=== PATIENT | male | born 1930 | race Caucasian/White ===

== ENCOUNTER 2017-01-04 09:53 | Emergency (ER) | payer OTHER, BC ==
[2017-01-04] MEDS ORDERED: Diltiazem 25 MG/5 ML SDV IVPUSH ONE (11:12)
[2017-01-04 13:01] VITALS: BP 140/73
--- NOTE | 2017-01-04 17:18 | ER ---
HISTORY OF PRESENT ILLNESS: An 86-year-old male here, who comes in by a private car with his son. The patient had an episode of dizziness and feeling a little lightheaded earlier this morning. He states his symptoms have resolved now. The patient tells me he has felt a little dizzy on and off for the last couple of months since being started on metoprolol which he takes 50 mg b.i.d. The patient denies any chest pain. He has not had any shortness of breath. He states that he feels good. He has not been nauseated. He has been active and in fact, this morning he was out chopping ice for a while and this went well. PAST MEDICAL HISTORY: Includes atrial flutter. OBJECTIVE: GENERAL APPEARANCE: The patient is awake and alert. No obvious distress. VITAL SIGNS: Reviewed. Blood pressure 171/92 initially. He is afebrile. PHYSICAL EXAM: Oral mucous membranes are moist. NECK: Supple. LUNGS: Clear. CARDIAC: Heart sounds distinct with a regular rhythm. ABDOMEN: Soft and nontender. SKIN: Warm and dry. INITIAL WORKUP: EKG was obtained showing atrial flutter. This is chronic for this patient. LABS: Done today include, a CBC which is unremarkable. Comprehensive metabolic panel is also normal. Troponins are normal as well. DIAGNOSIS: Atrial flutter, currently asymptomatic. TREATMENT PLAN: Cardizem 20 mg was given IV. This did drop the patient's blood pressure down. The lowest reading was 89/54, but it started to respond fairly quickly and soon was back to a reading of 107/59. The atrial flutter rhythm is persistent at this time, so I called the [facility] back-up doctor, Dr. Farrell and reviewed the case with him. The patient is asymptomatic. He is on Coumadin. He is on metoprolol. The patient is stable and is able to go home on his current medications with a fairly quick followup for further evaluation. I relayed this patient to the patient and his family members who are in agreement. The patient will be currently discharged. He is to continue on the metoprolol taking his next dose this evening. Activity should be as tolerated, and he is to follow up with his primary care provider, which he tells me is at the [facility], as soon as possible. He has an appointment there in 2 days for other reasons. He will schedule an appointment for this condition as soon as he can, hopefully next week. MARY/JEFF /[id number]
== END 2017-01-04 12:38 | disposition home or self-care (01) ==
LOC: LB.ED 09:53
DX: I48.92 Unspecified atrial flutter (principal)
CPT/HCPCS: 36415; 80053; 84484; 85025; 93005; 96374; 99284-25; J3490

== ENCOUNTER 2017-06-17 08:25 | Emergency (ER) | payer OTHER, BC ==
--- NOTE | 2017-06-17 08:42 | EDM.PDOC ---
ED HPI GENERAL MEDICAL PROBLEM - General Chief Complaint: Genitourinary Problem Stated Complaint: Hematuria Time Seen by Provider: 06/17/17 08:38 Source of Information: Reports: Patient History Limitations: Reports: No Limitations - History of Present Illness INITIAL COMMENTS - FREE TEXT/NARRATIVE: This is a 87yo M here for blood in his urine with clots. Patient states he has had 2 prior episodes in the past 2 years and was diagnosed with urinary tract infections both times and treated. Patient states he feels well without any concerns. He denies any chest pain, no sob, no dizziness and no discomfort with urination. Patient denies any symptoms other than blood in his urine with clots. Onset: Today Duration: Improving Improves with: Reports: None Worsens with: Reports: None Associated Symptoms: Reports: No Other Symptoms - Related Data Allergies Allergy/AdvReac Type Severity Reaction Status Date / Time No Known Allergies Allergy Verified 11/11/16 21:06 Home Meds: Home Meds Finasteride 5 mg PO DAILY 11/11/16 [History] Isosorbide Mononitrate [Imdur] 60 mg PO DAILY 11/11/16 [History] Multivitamins/Minerals/Lutein [Certavite SR with Lutein] 1 tab PO DAILY [History] Omeprazole 20 mg PO DAILY 11/11/16 [History] Rosuvastatin Calcium 20 mg PO DAILY 11/11/16 [History] Warfarin [Coumadin] 2.5 mg PO .MON .WED .SUN 11/11/16 [History] Warfarin [Coumadin] 5 mg PO . . .SAT 11/11/16 [History] traZODone HCl [Trazodone HCl] 100 mg PO DAILY 11/11/16 [History] Aspirin 81 mg PO DAILY 06/17/17 [History] Diltiazem [Cardizem CD] 180 mg PO DAILY 06/17/17 [History] Mineral Oil/Petrolatum,White [Lubrifresh Pm Eye Ointment] 3.5 gm OP DAILY PRN [History] Tamsulosin [Tamsulosin 24 Hr] 0.4 mg PO DAILY 06/17/17 [History] traZODone 50 mg PO BEDTIME 06/17/17 [History] Past Medical History HEENT History: Reports: Cataract, Impaired Vision Cardiovascular History: Reports: Bypass, Hypertension, [place], Stents Gastrointestinal History: Reports: Colon Polyp, GERD Musculoskeletal History: Reports: Arthritis Endocrine/Metabolic History: Reports: Diabetes, Type II - Infectious Disease History Infectious Disease History: Reports: Chicken Pox, Influenza, Measles, Mumps - Past Surgical History HEENT Surgical History: Reports: Cataract Surgery, Eye Surgery Cardiovascular Surgical History: Reports: Coronary Artery Bypass, Coronary Artery Stent Musculoskeletal Surgical History: Reports: Other (See Below) Social & Family History - Family History Family Medical History: Noncontributory ED ROS GENERAL - Review of Systems Review Of Systems: ROS reveals no pertinent complaints other than HPI. ED EXAM, RENAL/ - Physical Exam Exam: See Below Exam Limited By: No Limitations General Appearance: Alert, WD/WN, No Apparent Distress Ears: Normal External Exam Nose: Normal Inspection Throat/Mouth: Normal Inspection Head: Atraumatic, Normocephalic Neck: Normal Inspection Respiratory/Chest: No Respiratory Distress, Lungs Clear, Normal Breath Sounds Cardiovascular: Normal Peripheral Pulses, Regular Rate, Rhythm GI/Abdominal: Normal Bowel Sounds (Male) Exam: No Hernia, Normal Inspection Neurological: Alert, Oriented, CN II-XII Intact Psychiatric: Normal Affect, Normal Mood Skin Exam: Warm, Dry, Intact Course - Vital Signs Last Recorded V/S: Last Vital Signs Temp 37.1 C 06/17/17 08:25 Pulse 127 H 06/17/17 08:25 Resp 12 06/17/17 08:25 BP 156/85 H 06/17/17 08:25 Pulse Ox 100 06/17/17 08:25 - Orders/Labs/Meds Orders: Active Orders 24 hr Category Date Time Status Cardiac Monitoring [RC] .As Directed Care 06/17/17 08:43 Active EKG Documentation Completion [RC] ASDIRECTED Care 06/17/17 08:43 Active CBC WITH AUTO DIFF [HEME] Stat Lab 06/17/17 08:44 Ordered COMPREHENSIVE METABOLIC PN,CMP [CHEM] Stat Lab 06/17/17 08:44 Ordered CULTURE URINE [RM] Stat Lab 06/17/17 08:54 Received TROPONIN I [CHEM] Stat Lab 06/17/17 08:44 Ordered Labs: Laboratory Tests 06/17/17 06/17/17 06/17/17 Range/Units 08:46 09:00 09:00 WBC 15.0 H D (4.0-11.0) K/uL RBC 5.09 (4.50-6.50) M/uL Hgb 14.7 (13.0-18.0) g/dL Hct 44.5 (40.0-54.0) % MCV 87 (76-96) fL MCH 28.9 (27.0-32.0) pg MCHC 33.0 (31.0-35.0) g/dL RDW 14.0 (11.0-16.0) % Plt Count 153 (150-400) K/uL MPV 9.9 (6.0-10.0) fL Neut % (Auto) 87.2 H (45.0-70.0) % Lymph % (Auto) 5.1 L (20.0-40.0) % Storey % (Auto) 7.5 (3.0-10.0) % Eos % (Auto) 0.1 L (1.0-5.0) % Baso % (Auto) 0.1 (0.0-0.5) % Neut # (Auto) 13.10 H (2.00-7.50) K/uL Lymph # (Auto) 0.76 L (1.50-4.00) K/uL Storey # (Auto) 1.12 H (0.20-0.80) K/uL Eos # (Auto) 0.02 L (0.04-0.40) K/uL Baso # (Auto) 0.01 L (0.02-0.10) K/uL PT 14.2 H (9.0-11.5) sec INR 1.5 D (1.0-3.5) Sodium 138 (136-145) mmol/L Potassium 3.8 (3.5-5.1) mmol/L Chloride 103 (98-107) mmol/L Carbon Dioxide 27.7 (21.0-32.0) mmol/L Anion Gap 11.1 (5.0-15.0) mmol/L BUN 20 D (8-26) mg/dL Creatinine 0.76 (0.70-1.30) mg/dL Est Cr Clr Drug Dosing 64.02 mL/min Estimated GFR (MDRD) > 60 (>60) MLS/MIN BUN/Creatinine Ratio 26.3 H (6-25) Glucose 338 H (74-100) mg/dL Calcium 10.5 H (8.5-10.1) mg/dL Total Bilirubin 0.5 D (0.0-1.0) mg/dL AST 15 (15-37) U/L ALT 30 (12-78) U/L Alkaline Phosphatase 135 H (46-116) U/L Troponin I 0.050 D (0.000-0.060) ng/mL Total Protein 7.5 (6.4-8.2) g/dL Albumin 3.6 (3.4-5.0) g/dL Globulin 3.9 (2.2-4.2) g/dL Albumin/Globulin Ratio 0.9 (0.8-2.0) Urine Color Urine Appearance (CLEAR) Urine pH (5.0-8.0) Ur Specific [place] (1.003-1.030) Urine Protein (NEGATIVE) mg/dL Urine Glucose (UA) (NEGATIVE) mg/dL Urine Ketones (NEGATIVE) mg/dL Urine Occult Blood (NEGATIVE) Urine Nitrite (NEGATIVE) Urine Bilirubin (NEGATIVE) Urine Urobilinogen (0.2-1.0) E.U./dL Ur Leukocyte Esterase (NEGATIVE) Urine RBC /HPF Urine WBC /HPF Urine WBC Clumps /HPF Ur Squamous Epith Cells /HPF Amorphous Sediment /HPF Urine Bacteria /HPF 06/17/17 Range/Units 09:00 WBC (4.0-11.0) K/uL RBC (4.50-6.50) M/uL Hgb (13.0-18.0) g/dL Hct (40.0-54.0) % MCV (76-96) fL MCH (27.0-32.0) pg MCHC (31.0-35.0) g/dL RDW (11.0-16.0) % Plt Count (150-400) K/uL MPV (6.0-10.0) fL Neut % (Auto) (45.0-70.0) % Lymph % (Auto) (20.0-40.0) % Storey % (Auto) (3.0-10.0) % Eos % (Auto) (1.0-5.0) % Baso % (Auto) (0.0-0.5) % Neut # (Auto) (2.00-7.50) K/uL Lymph # (Auto) (1.50-4.00) K/uL Storey # (Auto) (0.20-0.80) K/uL Eos # (Auto) (0.04-0.40) K/uL Baso # (Auto) (0.02-0.10) K/uL PT (9.0-11.5) sec INR (1.0-3.5) Sodium (136-145) mmol/L Potassium (3.5-5.1) mmol/L Chloride (98-107) mmol/L Carbon Dioxide (21.0-32.0) mmol/L Anion Gap (5.0-15.0) mmol/L BUN (8-26) mg/dL Creatinine (0.70-1.30) mg/dL Est Cr Clr Drug Dosing mL/min Estimated GFR (MDRD) (>60) MLS/MIN BUN/Creatinine Ratio (6-25) Glucose (74-100) mg/dL Calcium (8.5-10.1) mg/dL Total Bilirubin (0.0-1.0) mg/dL AST (15-37) U/L ALT (12-78) U/L Alkaline Phosphatase (46-116) U/L Troponin I (0.000-0.060) ng/mL Total Protein (6.4-8.2) g/dL Albumin (3.4-5.0) g/dL Globulin (2.2-4.2) g/dL Albumin/Globulin Ratio (0.8-2.0) Urine Color Red Urine Appearance Cloudy (CLEAR) Urine pH 5.5 (5.0-8.0) Ur Specific [place] 1.025 (1.003-1.030) Urine Protein >=300 H (NEGATIVE) mg/dL Urine Glucose (UA) 500 H (NEGATIVE) mg/dL Urine Ketones Trace H (NEGATIVE) mg/dL Urine Occult Blood Large H (NEGATIVE) Urine Nitrite Negative (NEGATIVE) Urine Bilirubin Negative (NEGATIVE) Urine Urobilinogen 0.2 (0.2-1.0) E.U./dL Ur Leukocyte Esterase Negative (NEGATIVE) Urine RBC Packed H /HPF Urine WBC 10-20 H /HPF Urine WBC Clumps Few /HPF Ur Squamous Epith Cells Moderate /HPF Amorphous Sediment Moderate /HPF Urine Bacteria Moderate H /HPF Meds: Medications Discontinued Medications Generic Name Dose Route Start Last Admin Trade Name Caden PRN Reason Stop Dose Admin Ceftriaxone Sodium 1 gm 06/17/17 11:11 Rocephin IM 06/17/17 11:12 ONETIME ONE Ceftriaxone Sodium Confirm 06/17/17 11:16 Rocephin Administered 06/17/17 11:17 Dose 1 gm .ROUTE .STK-MED ONE - Re-Assessments/Exams Free Text/Narrative Re-Assessment/Exam: Patient urinated again while waiting for labs and urine color improved to slightly tinged pink. Departure - Departure Time of Disposition: 10:00 Disposition: Home, Self-Care 01 Condition: Good Clinical Impression: Hematuria due to acute cystitis - Discharge Information Instructions: Dehydration, Adult, Luaq-dh-Dill, Urinary Tract Infection, Adult , Ciprofloxacin tablets, Hematuria, Adult Referrals: PCP,None [Primary Care Provider] - Forms: ED Department Discharge Additional Instructions: Follow up with Dr. Velazquez in the clinic in 1 week. Do not take aspirin for 1 week. Drink a lot of water. Take one tablet of Cipro by mouth every day for 5 days. Discussed need for follow up with [facility] or [facility] for further [facility]up and management. - My Orders Last 24 Hours: My Active Orders 06/17/17 08:43 Cardiac Monitoring [RC] .As Directed EKG Documentation Completion [RC] ASDIRECTED 06/17/17 08:44 CBC WITH AUTO DIFF [HEME] Stat COMPREHENSIVE METABOLIC PN,CMP [CHEM] Stat TROPONIN I [CHEM] Stat 06/17/17 08:54 CULTURE URINE [RM] Stat - Assessment/Plan Last 24 Hours: My Active Orders 06/17/17 08:43 Cardiac Monitoring [RC] .As Directed EKG Documentation Completion [RC] ASDIRECTED 06/17/17 08:44 CBC WITH AUTO DIFF [HEME] Stat COMPREHENSIVE METABOLIC PN,CMP [CHEM] Stat TROPONIN I [CHEM] Stat 06/17/17 08:54 CULTURE URINE [RM] Stat
[2017-06-17 09:27] VITALS: BP 156/85
[2017-06-17] MEDS ORDERED: cefTRIAXone 1 GM Vial ONE ×2 (11:00→11:16)
[2017-06-17] MEDS ORDERED: cefTRIAXone 1 GM Vial IM ONE (11:11)
== END 2017-06-17 11:15 | disposition home or self-care (01) ==
LOC: LB.ED 08:25
DX: N30.01 Acute cystitis with hematuria (principal); H54.7 Unspecified visual loss; E11.9 Type 2 diabetes mellitus without complications; K21.9 Gastro-esophageal reflux disease without esophagitis; I25.2 Old myocardial infarction; I10 Essential (primary) hypertension; Z79.899 Other long term (current) drug therapy; Z95.1 Presence of aortocoronary bypass graft; Z79.01 Long term (current) use of anticoagulants
CPT/HCPCS: 36415; 80053; 81001; 84484; 85025; 85610; 87086; 87186; 93005; 96372; 99283-25; J0696

== ENCOUNTER 2017-09-05 16:02 | Emergency (ER) | payer BC, OTHER ==
[2017-09-05] MEDS ORDERED: Ciprofloxacin 250 MG Tab ONE (16:45)
[2017-09-05] MEDS ORDERED: Phenazopyridine 100 MG Tab ONE (16:45)
[2017-09-05 18:22] VITALS: BP 135/68
--- NOTE | 2017-09-05 22:15 | ER ---
HISTORY OF PRESENT ILLNESS: An 87-year-old male here with complaints of hematuria and dysuria symptoms that have been ongoing for the last couple of days. He has not been running a fever to his knowledge. He states he otherwise feels fine. He denies any back pain. He does have history of UTIs. OBJECTIVE: GENERAL APPEARANCE: The patient is awake and alert, in no obvious distress. VITAL SIGNS: Reviewed as listed. ABDOMEN: The patient has mild to minimal discomfort with light palpation over the lower abdomen centrally located over the bladder. SKIN: Warm and dry. No guarding. LAB AND X-RAY STUDIES: UA does show UTI. DIAGNOSIS: Urinary tract infection or UTI. TREATMENT PLAN: Cipro 250 mg b.i.d., we will give him a 5 day supply. We also gave him Pyridium to use 1 tablet every 8 hours as needed for 2 days for dysuria. The patient has an appointment coming up at the [facility] with his primary care provider next Thursday. I advised the patient to discuss this urinary tract infection with that provider. He may want to keep the patient on antibiotics longer. Followup otherwise should be within a couple of days if he is not improving. MARY/MODL /[id number]
== END 2017-09-05 16:50 | disposition home or self-care (01) ==
LOC: LB.ED 16:02
DX: N39.0 Urinary tract infection, site not specified (principal); R31.9 Hematuria, unspecified
CPT/HCPCS: 81001; 99283; A9270

== ENCOUNTER 2018-10-05 16:34 | Emergency (ER) | payer BC ==
[2018-10-05 17:16] VITALS: BP 136/70
--- NOTE | 2018-10-05 20:41 | ER ---
DATE OF SERVICE: 10/05/2018 HPI: The patient is an 88-year-old male comes in today with chief complaint of a freight train in his head. He notes he has a constant noise in his head, which started about 2 hours ago. The patient was looking for something running in his house. He is a little reluctant to describe it as low-pitched or high pitched, but does finally decide it is a low- pitched noise, it is not pulsatile. He had a similar noise in his head last night, but it only lasted for an hour. The patient has no pain anywhere. He does not have any other symptoms. He notes he feels well. He does have hearing aids, but currently, these are out, being repaired, and he has a temporary one in the left ear. He notes there are pieces of hearing aid in the right ear from his previous hearing aids and there are a few small white plastic pieces wedged in the wax. He is having his ears cleaned later in the week and already has an appointment for that. The patient takes one baby aspirin a day. He is on a calcium channel guido and a proton pump inhibitor and some trazodone. He does not have any vertigo. He does have hearing loss obviously, but we are not sure really if there is any of it is new. ALLERGIES: NKDA. CURRENT MEDICATIONS: Include hydrochlorothiazide 25 mg p.o. daily, some eye vitamins, apixaban 5 mg p.o. b.i.d., diltiazem 180 mg p.o. daily, aspirin 81 mg 1 p.o. daily, Imdur 60 mg p.o. daily, finasteride 5 mg p.o. daily, tamsulosin 0.4 one p.o. daily, rosuvastatin 20 mg p.o. daily, omeprazole 20 mg p.o. daily, and trazodone 50 mg q.p.m. At least , 3 of these can be associated with ototoxicity and tinnitus. PHYSICAL EXAMINATION: GENERAL: He is alert, oriented, no apparent distress. He is very hard of hearing and it is somewhat difficult to communicate, especially if he takes his one hearing aid out. VITAL SIGNS: Temperature is 98.9, pulse is 100, respirations 18, O2 saturation is 99 % on room air. VITAL SIGNS: Blood pressure is 136/70. TMs appear normal, other than there is a little bit of wax and a little fragments of plastic in his ear, but he is going to get that irrigated out in the next couple of days. Tongue is midline. Pupils are equal , but not really reactive to light. Extraocular movements are intact. Shrug is normal. NECK: Supple. No nodes. No bruits. No venous hum. HEART: Irregular without murmur. LUNGS: Clear. ABDOMEN: Benign. NEUROLOGIC: His strength is intact. He has had negative Romberg and appears otherwise well. ASSESSMENT: Tinnitus. PLAN: While the patient was in the ER, his tinnitus resolved. I discussed with him that there are several reasons he could have it, not the least of which is his hearing loss and couple of his medications can cause it, but he has been on them for a while other than the Eliquis, which was not on the list, but I found he does have Audiology appointment coming up, and since he has already been seen by ENT and Audiology at the [facility], I recommended that he follow up with them for this as one of the first things we are going to want to do is do an audiology exam and see if his hearing has changed significantly and then he can see the ENT for further workup. If he develops any other symptoms, we would have him return to clinic again. He has no vertigo. PRIETO/JEFF /[id number]
== END 2018-10-05 17:39 | disposition home or self-care (01) ==
LOC: LB.ED 16:34
DX: H93.19 Tinnitus, unspecified ear (principal)
CPT/HCPCS: 82962; 99284

== ENCOUNTER 2018-10-06 14:35 | Emergency (ER) | payer BC | END 2018-10-06 14:40 | disposition home or self-care (01) | LOC: LB.ED 14:35 | DX: Z53.21 Procedure and treatment not carried out due to patient leaving prior to being seen by health care provider (principal) | CPT/HCPCS: 99283 ==